=== PATIENT | female | born 1995 | race African-American/Black ===

== ENCOUNTER 2020-01-27 06:40 | Inpatient (IN) | payer OTHER ==
--- NOTE | 2020-01-27 07:50 | HP ---
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: No: Alzheimer's, CVA, Dementia, Migraine, Multiple Sclerosis, Peripheral Neuropathy, Parkinson's, Seizure, Syncope, TIA, Vertigo, Other Cardiovascular: No: AFIB, Aneurysm, Aortic Insufficiency, Aortic Stenosis, CAD, CHF, Deep Vein Thrombosis, HTN, Hyperlipdemia, SC, Mitral Insufficiency, Mitral Stenosis, Murmur, Pulmonary Hypertension, Other Pulmonary: No: Asthma, Bronchitis, Cancer, COPD, O2 Dependent, Pneumonia, Previously Intubated, Pulmonary Embolus, Pulmonary Fibrosis, Sleep Apnea, Other Gastrointestinal: No: Ascites, Cancer, Constipation, Crohn's Disease, Diverticulitis, Diverticulosis, Esophageal Varices, Gastritis, GERD, GI Bleed, Hemorrhoids, Hiatal Hernia, Inflamatory Bowel Disease, Irritable Bowel Disease, Pancreatitis, Peptic Ulcer Disease, Ulcerative Colitis, Other Hepatobiliary: No: Cirrhosis, Cholelithiasis, Cholecystitis, Choledocholithiasis, Hepatitis A, Hepatitis B, Hepatitis C, Other Renal/: No: Renal Failure, Renal Inusuff, BPH, Cancer, Hematuria, Hemodia lysis, Neurogenic Bladder, Renal Calculi, UTI, Other Reproductive: No: Ectopic , Endometriosis, Fibroids, PID, Polycystic Ovary Syndrome, Postmenopausal, Other ...Para: 0 Heme/Onc: No: Anemia, B12 Deficiency, Bleeding Disorder, Cancer, Current Chemotherapy, Current Radiation Therapy, Hemochromatosis, Hypercoaguable State, Myeloproliferative Synd, Sickle Cell Disease, Sickle Cell Trait, Thrombocytopenia, Other Infectious Disease: No: AIDS, C-Diff, Herpes Zoster, HIV, MRSA, STD's, Tubercu losis, VREF, Other Psych: No: Addictions, Anxiety, Bipolar, Depression, Panic, Psychosis, Schizophrenia, Other Musculoskeletal: No: Bursitis, Chronic low back pain, Hemiparesis, Hemiplegia, Osteoarthritis, Paraplegia, Other Rheumatology: No: Fibromyalgia, Gout, Lupus, Rheumatoid Arthritis, Sarcoidosis, Vasculitis, Other ENT: No: Allergic Rhinitis, Sinusitis, Other Endocrine: No: [place]'s Disease, [place]'s Disease, Diabetes Insipidus, Diabetes Mellitus, Hyperparathyroidism, Hyperthyroidism, Hypothyroidism, Osteopenia, SIADH, Other Dermatology: No: Basal Cell, Cellulitis, Eczema, Melanoma, Psoriasis, Squamous Cell, Other - Past Surgical History Past Surgical History: No: None, AAA Repair, AICD, Amputation, Appendectomy, Arthrosocopy, AV Fistula/Graft, Bariatric Surgery, Breast Biopsy, Bypass, CABG, Carotid Endarterectomy, Cataract Removal, Cholecystectomy, Colectomy, Colonoscopy, Colostomy, Craniotomy, , Cystectomy, Hernia Repair, Hysterectomy, Ileal Conduit, Ileosotomy, Joint Replacement, Kidney Transplant, Laminectomy, Liver Transplant, Mastectomy, Nephrectomy, Oopherectomy, Orchiectomy, Permanent Pacemaker, Prostatectomy, Splenectomy, Stent, Thoracotomy, TURP, Tonsillectomy, Tubal Ligation, Upper Endoscopy, Valve Replacement, Vasectomy, Vein Stripping/Ligation Hx Myomectomy: No Hx Transabdominal Cerclage: No - Advance Directives Advance Directives: Yes: Living Will - Smoking History Smoking history: Current every day smoker Have you smoked in the past 12 months: No - Alcohol/Substance Use Hx Alcohol Use: No History of Substance Use: reports: None - Social History Usual Living Arrangement: Yes: With Significant Other Do you think of yourself as: Straight/Heterosexual ADL: Independent History of Recent Travel: No Family Medical History Family History: Denies Review of Systems - Review of Systems Constitutional: reports: No Symptoms Eyes: reports: No Symptoms HENT: reports: No Symptoms Neck: reports: No Symptoms Cardiovascular: reports: No Symptoms Respiratory: reports: No Symptoms Gastrointestinal: reports: No Symptoms Genitourinary: reports: No Symptoms Breasts: reports: No Symptoms Reported Musculoskeletal: reports: No Symptoms Integumentary: reports: No Symptoms Neurological: reports: No Symptoms Endocrine: reports: No Symptoms Hematology/Lymphatic: reports: No Symptoms Psychiatric: reports: No Symptoms Physical Exam - Maternity Constitutional: Yes: Well Nourished, No Distress, Calm Eyes: Yes: WNL, Conjunctiva Clear, EOM Intact HENT: Yes: WNL, Atraumatic, Normocephalic Neck: Yes: WNL, Supple, Trachea Midline Cardiovascular: Yes: WNL, Regular Rate and Rhythm Lungs: Clear to auscultation Breast(s): Yes: WNL - Abdominal Exam/OB Fundal Height: 40 Number of Fetuses: Single Presentation: Vertex Contractions: Yes Regularity: Irregular Intensity: Mild Monitor Mode: External Heart Rate (range): 150 Heart Rate Location: [facility] Category: I Accelerations: Uniform Decelerations: None - Vaginal Exam/OB Vaginal Bleeding: No Speculum Exam: No Dilatation (cm): 1 Effacement (%): 50 Amniotic Membrane Status: Intact Presentation: Vertex/Position Station: -2 - Physical Exam Musculoskeletal: Yes: WNL Extremities: Yes: WNL Edema: Yes Edema: LUE: 1+, RUE: 1+, LLE: 1+, RLE: 1+ Integumentary: Yes: WNL Deep Tendon Reflex Grade: Normal +2 ...Motor Strength: WNL Psychiatric: Yes: WNL, Alert, Oriented Hemorrhage Risk Assessment - Risk Factors Medium Risk Factors: Yes: None High Risk Factors: Yes: None Risk Score: 1 Risk Level: Medium Risk Assessment/Plan post date for induction
[2020-01-27] MEDS ORDERED: OXYTOCIN 30 UNITS in 0.9% NS 30 UNIT/500 ML INFUS.BAG IVPB SCH (08:00)
[2020-01-27 08:54] LABS: BASO % 0.4 % (0-2.0); EOS % 7.3 % (0-4.5); HEMATOCRIT 37.6 % (32.4-45.2); HEMOGLOBIN 12.4 GM/dL (10.7-15.3); LYMPH % 24.6 % (8-40); MCH 31.9 pg (25.7-33.7); MCHC 33.1 g/dl (32.0-36.0); MEAN CELL VOLUME 96.5 fl (80-96); MEAN PLT VOLUME 8.7 fl (7.5-11.1); MONO % 10.1 % (3.8-10.2); NEUT % 57.6 % (42.8-82.8); PLATELET COUNT 199 K/MM3 (134-434); RDW 14.9 % (11.6-15.6); WHITE BLOOD COUNT 8.9 K/mm3 (4.0-10.0)
[2020-01-27 09:00] LABS: INR 1.03 (0.83-1.09); PROTHROMBIN TIME (PATIENT) 12.2 SEC (9.7-13.0)
[2020-01-27 09:02] LABS: ACTIVATED PTT 28.1 SECONDS (25.2-36.5)
[2020-01-27] MEDS: DEXTROSE 5%-LACTATED RINGERS 1,000 ML IV SCH (09:10)
[2020-01-27 09:22] LABS: BLOOD UREA NITROGEN 8.8 mg/dL (7-18); CALCIUM 9.2 mg/dL (8.5-10.1); CREATININE 0.6 mg/dL (0.55-1.3)
[2020-01-27] MEDS ORDERED: OXYTOCIN 30 UNITS in 0.9% NS 30 UNIT/500 ML INFUS.BAG IVPB ONE (09:57)
[2020-01-27] MEDS ORDERED: ACETAMINOPHEN 325 MG TABLET (FP) ONE (20:09)
--- NOTE | 2020-01-27 20:10 | PN ---
Progress Note (short form) - Note Progress Note: 530 pm, 1 to 2 cm, 50 %, -2, nst reactive, uc q 3 min, still leaking water, will continue pitocin, not asking for epidural yet
--- NOTE | 2020-01-27 20:12 | PN ---
Progress Note (short form) - Note Progress Note: 810 pm, temp 99.5, tachy to 160 upper limit, will give tylenol, and observe for chorioamnionitis
[2020-01-27] MEDS: ACETAMINOPHEN 325 MG TABLET (FP) PO PRN (20:13)
[2020-01-27] MEDS ORDERED: FENTANYL/BUPIVACAINE/NS/PF - PCEA - 50 ML DISP.SYRIN EP ONE (21:36)
[2020-01-27] MEDS ORDERED: PCA PUMP NR ONE (21:36)
[2020-01-27] MEDS ORDERED: BUPIVACAINE HCL/PF 0.25% (2.5MG/ML) 10 ML VIAL ONE (21:54)
[2020-01-27] MEDS ORDERED: OXYTOCIN 10 UNITS/ML VIAL ONE (22:39)
[2020-01-27] MEDS ORDERED: CEFAZOLIN 2 GM/D5W 2 GM/50 ML ML IVPB ONE (22:39)
[2020-01-27] MEDS ORDERED: OXYTOCIN 20 UNITS in 0.9% NS 20 UNIT/1,000 ML INFUS.BAG IV ONE (22:39)
[2020-01-27] MEDS ORDERED: PHENYLEPHRINE HCL 10 MG/1 ML SINGLE DOSE VIAL ONE (22:41)
[2020-01-27] MEDS ORDERED: morphine SULFATE/PF 0.5 MG/ML (2cc Syringe - QUVA) ONE (22:41)
[2020-01-27] MEDS ORDERED: KETOROLAC TROMETHAMINE 30 MG/1 ML VIAL ONE (23:10)
[2020-01-28] MEDS ORDERED: IBUPROFEN 800 MG/8 ML IJ IVPB PRN (00:03)
[2020-01-28] MEDS ORDERED: METHYLERGONOVINE MALEATE 0.2 MG/1 ML AMP IM PRN (00:03)
[2020-01-28] MEDS ORDERED: SENNOSIDES/DOCUSATE COMBO (SENNA PLUS) TABLET (UD) PO PRN (00:03)
[2020-01-28] MEDS ORDERED: oxyCODONE HCL 5 MG TABLET PO PRN ×2 (00:03)
--- NOTE | 2020-01-28 00:11 | OP ---
Operative Note - Note: Operative Date: 01/27/20 Pre-Operative Diagnosis: chorioamnionitis, f t progress Operation: prinmary c s Post-Operative Diagnosis: Same as Pre-op Surgeon: Kian Segura College Administrator: Nicholas Roger Anesthesiologist/FIRE SUPPORT SPECIALIST: Fernando Kaur Anesthesia: Spinal Estimated Blood Loss (mls): 500 (no complications ) Operative Report Dictated: Yes
[2020-01-28] MEDS ORDERED: OXYTOCIN 20 UNITS in 0.9% NS 20 UNIT/1,000 ML INFUS.BAG IV ONE (00:44)
[2020-01-28] MEDS: OXYTOCIN 20 UNITS in 0.9% NS 20 UNIT/1,000 ML INFUS.BAG IV SCH ×2 (00:48→17:16)
--- NOTE | 2020-01-28 08:09 | PN ---
Post Progress Note Post Day: 1 Type of Delivery: Primary C/S Vital Signs: Vital Signs Temperature 98.6 F 01/28/20 05:00 Pulse Rate 88 01/28/20 05:00 Respiratory Rate 18 01/28/20 07:00 Blood Pressure 106/62 01/28/20 05:00 O2 Sat by Pulse Oximetry (%) 98 01/27/20 23:55 Breast Exam: Yes: Soft Uterus: Yes: Fundus Firm, Fundus below umbilicus, Non-tender Incision: Yes: Dressing dry and intact, Sutures intact Abdomen/GI: Yes: Abdomen soft, Passing flatus, Tolerating PO Lochia: Yes: Serosa Lochia, amount: Small Extremities: Yes: Calves non-tender Perineum: Yes: Intact Activity: Ambulating - Labs Labs: CBC WBC 8.9 K/mm3 (4.0-10.0) 01/27/20 08:35 RBC 3.90 M/mm3 (3.60-5.2) 01/27/20 08:35 Hgb 12.4 GM/dL (10.7-15.3) 01/27/20 08:35 Hct 37.6 % (32.4-45.2) 01/27/20 08:35 MCV 96.5 fl (80-96) H 01/27/20 08:35 MCH 31.9 pg (25.7-33.7) 01/27/20 08:35 MCHC 33.1 g/dl (32.0-36.0) 01/27/20 08:35 RDW 14.9 % (11.6-15.6) 01/27/20 08:35 Plt Count 199 K/MM3 (134-434) 01/27/20 08:35 MPV 8.7 fl (7.5-11.1) 01/27/20 08:35 Absolute Neuts (auto) 5.2 K/mm3 (1.5-8.0) 01/27/20 08:35 Neutrophils % 57.6 % (42.8-82.8) 01/27/20 08:35 Lymphocytes % 24.6 % (8-40) 01/27/20 08:35 Monocytes % 10.1 % (3.8-10.2) 01/27/20 08:35 Eosinophils % 7.3 % (0-4.5) H 01/27/20 08:35 Basophils % 0.4 % (0-2.0) 01/27/20 08:35 Nucleated RBC % 0 % (0-0) 01/27/20 08:35
[2020-01-28 08:54] LABS: BASO % 0.2 % (0-2.0); EOS % 1.1 % (0-4.5); HEMATOCRIT 36.2 % (32.4-45.2); HEMOGLOBIN 11.8 GM/dL (10.7-15.3); LYMPH % 13.9 % (8-40); MCH 31.5 pg (25.7-33.7); MCHC 32.4 g/dl (32.0-36.0); MEAN CELL VOLUME 97.3 fl (80-96); MEAN PLT VOLUME 8.8 fl (7.5-11.1); MONO % 5.7 % (3.8-10.2); NEUT % 79.1 % (42.8-82.8); PLATELET COUNT 179 K/MM3 (134-434); RBC 3.73 M/mm3 (3.60-5.2); RDW 14.9 % (11.6-15.6); WHITE BLOOD COUNT 13.4 K/mm3 (4.0-10.0)
[2020-01-28] MEDS: PRENATAL VITAMINS W/ FOLIC ACID TABLET (FP) PO SCH (10:00)
[2020-01-28] MEDS: IBUPROFEN 600 MG TABLET (FP) PO PRN ×3 (11:58→21:25)
[2020-01-28] MEDS: ACETAMINOPHEN 325 MG TABLET (FP) PO PRN ×3 (11:58→21:25)
[2020-01-28] MEDS: SIMETHICONE 80 MG TAB.CHEW (FP) PO PRN ×3 (11:59→21:25)
[2020-01-29] MEDS ORDERED: BISACODYL 10 MG SUPP.RECT RC PRN (00:03)
[2020-01-29] MEDS: IBUPROFEN 600 MG TABLET (FP) PO PRN ×2 (09:11→21:36)
[2020-01-29] MEDS: SIMETHICONE 80 MG TAB.CHEW (FP) PO PRN ×2 (09:11→21:36)
[2020-01-29] MEDS: ACETAMINOPHEN 325 MG TABLET (FP) PO PRN ×2 (09:12→21:37)
[2020-01-29] MEDS: PRENATAL VITAMINS W/ FOLIC ACID TABLET (FP) PO SCH (09:13)
--- NOTE | 2020-01-29 09:52 | PN ---
Post Progress Note Post Day: 2 Type of Delivery: Primary C/S Vital Signs: Vital Signs Temperature 97.9 F 01/29/20 00:50 Pulse Rate 93 H 01/29/20 00:50 Respiratory Rate 18 01/29/20 00:50 Blood Pressure 115/60 01/29/20 00:50 O2 Sat by Pulse Oximetry (%) 98 01/27/20 23:55 Breast Exam: Yes: Soft Uterus: Yes: Fundus Firm, Fundus below umbilicus, Non-tender Incision: Yes: Dressing dry and intact, Sutures intact Abdomen/GI: Yes: Abdomen soft, Passing flatus, Tolerating PO Lochia: Yes: Serosa Lochia, amount: Small Extremities: Yes: Calves non-tender Perineum: Yes: Intact Activity: Ambulating - Labs Labs: CBC WBC 13.4 K/mm3 (4.0-10.0) H 01/28/20 08:10 RBC 3.73 M/mm3 (3.60-5.2) 01/28/20 08:10 Hgb 11.8 GM/dL (10.7-15.3) 01/28/20 08:10 Hct 36.2 % (32.4-45.2) 01/28/20 08:10 MCV 97.3 fl (80-96) H 01/28/20 08:10 MCH 31.5 pg (25.7-33.7) 01/28/20 08:10 MCHC 32.4 g/dl (32.0-36.0) 01/28/20 08:10 RDW 14.9 % (11.6-15.6) 01/28/20 08:10 Plt Count 179 K/MM3 (134-434) 01/28/20 08:10 MPV 8.8 fl (7.5-11.1) 01/28/20 08:10 Absolute Neuts (auto) 10.6 K/mm3 (1.5-8.0) H 01/28/20 08:10 Neutrophils % 79.1 % (42.8-82.8) D 01/28/20 08:10 Lymphocytes % 13.9 % (8-40) D 01/28/20 08:10 Monocytes % 5.7 % (3.8-10.2) 01/28/20 08:10 Eosinophils % 1.1 % (0-4.5) D 01/28/20 08:10 Basophils % 0.2 % (0-2.0) 01/28/20 08:10 Nucleated RBC % 0 % (0-0) 01/28/20 08:10 Assessment/Plan dc pt home today
--- NOTE | 2020-01-29 09:54 | DS ---
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 Vital Signs: Vital Signs Temperature 97.9 F 01/29/20 00:50 Pulse Rate 93 H 01/29/20 00:50 Respiratory Rate 18 01/29/20 00:50 Blood Pressure 115/60 01/29/20 00:50 O2 Sat by Pulse Oximetry (%) 98 01/27/20 23:55 Constitutional: Yes: Well Nourished, No Distress, Calm Eyes: Yes: WNL, Conjunctiva Clear, EOM Intact HENT: Yes: WNL, Atraumatic, Normocephalic Neck: Yes: WNL, Supple, Trachea Midline Cardiovascular: Yes: WNL, Regular Rate and Rhythm Respiratory: Yes: WNL, Regular, CTA Bilaterally Gastrointestinal: Yes: WNL, Normal Bowel Sounds, Soft ...Rectal Exam: Yes: WNL Renal/: Yes: WNL Pelvis: Yes: WNL External Genitalia: Yes: Normal Internal Exam Deferred: Yes Vaginal Exam: Yes: Normal Cervix: Yes: Normal Uterus: Yes: Normal Adnexa: Normal: Bilateral ....Post : Yes: Uterus firm, Uterus non-tender Breast(s): Yes: WNL Musculoskeletal: Yes: WNL Extremities: Yes: WNL Edema: Yes Integumentary: Yes: WNL Wound/Incision: Yes: Clean/Dry, Well Approximated Neurological: Yes: WNL, Alert, Oriented ...Motor Strength: WNL Psychiatric: Yes: WNL, Alert, Oriented Labs: CBC, BMP 01/28/20 08:10 01/27/20 07:53 Delivery - Delivery Section: Primary Type of Anesthesia: Spinal Episiotomy/Laceration: None EBL (cc): 500 Delivery, Single - Stages of Labor Date 1st Stage Initiatied: 01/27/20 Time 1st Stage Initiated: 10:00 Date of Delivery: 01/27/20 Time of Delivery: 23:05 Time Placenta Delivered: 23:06 - Condition of Infant Hospital Coordinator/Strategic Procurement Manager Present: Yes Name: Misty Izaguirre Gender: Female Total Hours ROM (Hrs/Mins): 8/5 - [place] Feeding Plan Initial Plan: Elected not to breastfeed exclusively throughout hospitalization Discharge Summary Problems reviewed: Yes Reason For Visit: INDUCTION-ADMIT Procedures: Principal: primary lt c s Other Procedures: none Hospital Course: uneventful Health Concerns: none Plan of Treatment: oob as possible Goals: none Condition: Good - Instructions Diet, Activity, Other Instructions: Physical activity Resume your normal everyday activity as tolerated no heavy lifting or exercise until seen by your surgeon. You may walk unlimited melvin of and climb stairs. You may resume driving the car when you feel safe and comfortable behind the wheel. No sexual activity as instructed. Wound care If you have a bandage, leave it on, and keep dry for 48-72 hours. After that time discard the outer bandage. If they are tapes on the skin under the out of bandage leave them in place. They will peel off in the next 7 to 10 days. Do Not Peel them off. You may shower the day after surgery. If there are tapes present on the skin, you may shower over them. Diet There are no dietary restrictions. Eat healthy, high-fiber foods. Drink 6 to 8 glasses of liquid each day. This will assist in keeping your bowels are regular. Pain management You may take Tylenol or acetaminophen or Ibuprofen (for example, Motrin, Advil etc.) from my pain prescription medication is ordered should be taken as prescribed for moderate to severe pain. Call MD for any of the following: call dr ogden for 2 weeks appointment Severe pain not relieved by medication Fever of 101 or higher Excessive bleeding or drainage on dressing Inability to urinate Disposition: HOME - Home Medications Comprehensive Discharge Medication List: Ambulatory Orders Tablet 1 tablet PO DAILY 01/27/20 Prescription Drug Monitoring Program (I-STOP) results: I-STOP reviewed and no issues identified
--- NOTE | 2020-01-29 09:56 | OP ---
DATE OF OPERATION: 01/27/2020 PREOPERATIVE DIAGNOSES: Rule out chorioamnionitis and failure to progress. POSTOPERATIVE DIAGNOSES: Rule out chorioamnionitis and failure to progress. PROCEDURE: Primary low transverse section. SURGEON: Kian Segura MD SENIOR LINUX UNIX ADMINISTRATOR: UYEN Ho ANESTHESIOLOGIST: ANESTHESIA: Spinal anesthesia. INDICATION: This is a patient at 40 weeks and 3 days , was brought into the hospital for induction process and patient was 1 cm. Patient had artificial rupture of membrane at about 9:00 and received Pitocin. Patient started john and the patient had no fluid coming out. Probably was oligohydramnios at this point and so no fluid was coming out after artificial rupture of membrane. Around 2:00 in the afternoon patient had spinal. Had a gush of water coming out and patient still john every 3 minutes and at the time cervix was still about 1-2 cm only. At about 5:30 patient was checked again and still 1-2 cm and patient was continued given Pitocin until about 7:30, 8:00 patient was still about 1-2 cm. Patient started having a fever of 99.5 and patient also had tachycardia about 165, around this range. All the risks, benefits, alternatives explained to the patient already about possible chorioamnionitis and so we waited another 2 hours. Patient finally had a temperature of 100 and still had tachycardia at 160, 165. Cervix still remained the same, tight 1-2 cm. Patient is asking for epidural at this time and patient agreed and patient taken to the OR for primary low transverse section. DESCRIPTION OF PROCEDURE: Patient was placed on the operating table in the supine position. After spinal anesthesia was obtained the patient's abdomen and pelvis were prepped and draped in the usual sterile manner. Pfannenstiel incision was made. Incision was made through the skin and subcutaneous tissue until the fascia was nicked in the midline. The fascia extended bilaterally. Intraperitoneal cavity was entered. No bladder flap was created. Low transverse segment was entered. Baby delivered from LOT position. Baby was handed to physical security engineer after umbilical cord doubly clamped and cut. Placenta was removed. Uterus closed in single layer, 1st layer interlocking Vicryl sutures. Good hemostasis. Both gutters were cleaned. Both ovaries, fallopian tubes, uterus were within normal limits. No complication. Tolerated procedure well. Draining clear urine. Blood loss about 500 mL. Peritoneum was closed. Fascia was closed. Skin was closed. Transferred to recovery room in stable condition. MD BOBBI GALVAN/[id number]
[2020-01-29] MEDS: OXYTOCIN 20 UNITS in 0.9% NS 20 UNIT/1,000 ML INFUS.BAG IV SCH (18:00)
[2020-01-29] MEDS: DEXTROSE 5%-LACTATED RINGERS 1,000 ML IV SCH (18:00)
[2020-01-30] MEDS: PRENATAL VITAMINS W/ FOLIC ACID TABLET (FP) PO SCH (09:17)
[2020-01-30 10:32] VITALS: BP 120/82; PULSE 75; TEMP 98.2
--- NOTE | 2020-02-04 17:52 | PATH ---
Surgical Pathology Report Patient Name: MARICARMEN ALTMAN Med. Rec. #: [id number] /Age/Gender: 1995 (Age: 24) / F Account: [id number] Location: [facility] OBS/BRICK STACKER Taken: 01/27/2020 Received: 01/28/2020 Reported: 02/04/2020 Physicians: Kian Segura MD Specimen(s) Received PLACENTA Clinical History , primary , failure to progress, rule out chorio Final Diagnosis PLACENTA: THIRD TRIMESTER PLACENTA. TRIVASCULAR CORD. MEMBRANES WITH NO DIAGNOSTIC ABNORMALITIES. Electronically Signed Mona Valencia M.D. Gross Description The specimen is received fresh labeled placenta and is a 476 gram, 21.0 x 18.0 x 2.5 cm. placenta with attached membranes and umbilical cord. The attached membranes are mcneil, translucent with focal opacities and insert marginally. The umbilical cord measures 35 cm. in length and averages 1 cm. in diameter. The cord inserts eccentrically, 5.5 cm. to the nearest margin. No true knots or strictures are identified. Cut surface of the umbilical cord reveals 3 vessels. The surface is pate-blue with minimal fibrin deposition and appropriate caliber vessels. The maternal surface is red-brown with focal defects. Sectioning reveals red-brown, spongy parenchyma. No lesions are identified. Assistive Technology Specialist sections are submitted in three cassettes as follows: 1- membrane rolls and umbilical cord; 2-3- full thickness sections of placenta. /01/30/2020 saudi/01/30/2020
== END 2020-01-30 11:30 | disposition home or self-care (01) | DRG 786 ==
LOC: JLDR 06:40 → J3W 01-28 00:42
PROVIDERS: ADMIT Obstetrics & Gynecology; ATTEND Obstetrics & Gynecology
PROC: 10D00Z1 Extraction of Products of Conception, Low, Open Approach (ICD-10-PCS; principal; 2020-01-27)
DX: O62.1 Secondary uterine inertia (principal); O41.1230 Chorioamnionitis, third trimester, not applicable or unspecified; O48.0 Post-term pregnancy; Z3A.40 40 weeks gestation of pregnancy; Z37.0 Single live birth
CPT/HCPCS: 36415; 80048; 85025; 85610; 85730; 86593; 86780; 86850; 86900; 86901; 88307-TC; U0003